=== PATIENT | male | born 1985 | race African-American/Black ===

== ENCOUNTER 2023-07-25 19:52 | Emergency (ER) | payer OTHER ==
[2023-07-25 20:05] VITALS: BP 142/95; PULSE 94; RESP 18; TEMP 97.3; BMI 29.8
[2023-07-25] MEDS ORDERED: BACITRACIN ZINC 15 GM TUBE TOPICAL OINTMENT ONE (20:53)
[2023-07-25] MEDS ORDERED: DIPHTH,PERTUSS(ACELL),TET 0.5 ML DISP.SYRIN IM ONE ×2 (20:53→20:55)
[2023-07-25] MEDS ORDERED: BACITRACIN ZINC 15 GM TUBE TOPICAL OINTMENT TP ONE (20:53)
== END 2023-07-25 21:17 | disposition home or self-care (01) ==
LOC: JERFT 19:52
PROC: 3E0234Z Introduction of Serum, Toxoid and Vaccine into Muscle, Percutaneous Approach (ICD-10-PCS; principal; 2023-07-25)
DX: S69.91XA Unspecified injury of right wrist, hand and finger(s), initial encounter (principal); W23.1XXA Caught, crushed, jammed, or pinched between stationary objects, initial encounter
CPT/HCPCS: 73140-TC-RT-FY; 90715; 99283-25